=== PATIENT | female | born 1945 | race Caucasian/White ===

== ENCOUNTER 2018-10-14 11:22 | Emergency (ER) | payer BC, OTHER ==
[2018-10-14 11:45] VITALS: BMI 20.2
[2018-10-14] MEDS ORDERED: METOCLOPRAMIDE HCL INJECTION 10 MG/2 ML VIAL IVPUSH ONE (11:45)
--- NOTE | 2018-10-14 11:48 | PDOC ---
History of Present Illness - General Chief Complaint: Psychiatric Stated Complaint: PANIC ATTACK Time Seen by Provider: 10/14/18 11:40 History Source: Patient Exam Limitations: No Limitations - History of Present Illness Initial Comments: 10/14/18 11:48 73y F hx of anxiety presents with complaint of sob. Pt woke up this morning and found that her had . Pt was efeling very anxious, had taken 5mg of valium about 2 hrs prior to arrival and endorses feeling nauseus and vomited a smallb it. she denies any headache, back pain, abd pain, chest pain, cough, fever/chills, leg swelling, uriary symtoms or diarrhea. no melena or bpr. denies any sI/HI. pt accompanied by family Past History - Past Medical History Allergies/Adverse Reactions: Allergies Allergy/AdvReac Type Severity Reaction Status Date / Time No Known Allergies Allergy Verified 10/14/18 11:40 COPD: No - Suicide/Smoking/Psychosocial Hx Smoking History: Never smoked Have you smoked in the past 12 months: No Information on smoking cessation initiated: No Hx Alcohol Use: No Drug/Substance Use Hx: No Review of Systems - Review of Systems Able to Perform ROS?: Yes Comments:: 10/14/18 11:52 Constitutional - no reported Fever, Chills, HEENT: no reported vision changes, sore throat Respiratory: no reported cough, sob, hemoptysis Cardiac: no reported chest pain, palpitations, light headedness, leg swelling Abd/GI: no reported abd pain, nausea, vomiting, blood per rectum, melena, diarrhea : no reported dysuria, frequency, discharge Musculskelatal - no reported back pain, joint swelling skin - no reported bruising, erythema, rash neurological: no reported headache, numbness, focal weakness, tingling, ataxia, hematologic: no reported easy bruising, easy bleeding psych: denies SI/HI *Physical Exam - Vital Signs Last Vital Signs Temp Pulse Resp BP Pulse Ox 97.6 F 88 16 140/77 100 10/14/18 11:25 10/14/18 11:25 10/14/18 11:25 10/14/18 11:25 10/14/18 11:25 - Physical Exam Comments: 10/14/18 11:55 GENERAL: The patient is awake, alert, and fully oriented, Nontoxic - in no acute distress. HEAD: Normocephalic, atraumatic. EYES: extraocular movements intact, ENT: Normal voice, Moist mucous membranes. NECK: Normal range of motion, supple LUNGS: Breath sounds equal, clear to auscultation bilaterally. No wheezes, no rhonchi, no rales. HEART: Regular rate and rhythm, normal S1 and S2 without murmur, rub or gallop. ABDOMEN: Soft, nontender, No guarding, no rebound. . No CVA tenderness EXTREMITIES: Normal range of motion, no edema NEUROLOGICAL: No facial assymetry, Normal speech, PSYCH: anxious, hyperventilating SKIN: Warm, Dry, normal turgor, Moderate Sedation - Procedure Monitoring Vital Signs: Procedure Monitoring Vital Signs Temperature 97.6 F 10/14/18 11:25 Pulse Rate 88 10/14/18 11:25 Respiratory Rate 16 10/14/18 11:25 Blood Pressure 140/77 10/14/18 11:25 O2 Sat by Pulse Oximetry (%) 100 10/14/18 11:25 Heart Score/ECG Review - ECG Impressions Comment:: 10/14/18 12:21 Twelve-lead EKG was performed and reviewed by me. There is normal sinus rhythm with a normal rate. rate of 72 The axis is normal. The intervals are normal. There is normal R wave progression There are no ST or T wave abnormalities. Impression: Normal twelve-lead EKG Medical Decision Making - Medical Decision Making 10/14/18 11:58 suspect acute grief reaction will give reglan for nausea ekg to screen fora cut process anxiolytics as prescribed 10/14/18 13:00 pt feeling improved having a mild headache. whill give tylenol will dc with pmd fu and support of her family I discussed the physical exam findings, ancillary test results and final diagnoses with the patient. I answered all of the patient's questions. The patient was satisfied with the care received and felt comfortable with the discharge plan and treatment plan. The patient will call their primary care physician within 24 hours to arrange follow-up and will return to the Emergency Department with any new, persistent or worsening symptoms. *DC/Admit/Observation/Transfer Diagnosis at time of Disposition: Grief reaction - Discharge Dispostion Disposition: HOME Condition at time of disposition: Improved Decision to Admit order: No - Referrals - Patient Instructions Additional Instructions: Please utilize your family and friends in this time of grief. Take the zofran if you are nauseaus. Make sure you are eating/drinking. Return to the Emergency Department if you have any concerns. Print Language: TURKISH - Post Discharge Activity
[2018-10-14] MEDS ORDERED: METOCLOPRAMIDE HCL INJECTION 10 MG/2 ML VIAL ONE (11:56)
[2018-10-14] MEDS ORDERED: ACETAMINOPHEN 325 MG TABLET (FP) PO ONE (12:55)
[2018-10-14] MEDS ORDERED: ACETAMINOPHEN 325 MG TABLET (FP) ONE (12:56)
[2018-10-14] MEDS ORDERED: ONDANSETRON 4 MG/2 ML VIAL IVPB ONE (13:31)
[2018-10-14] MEDS ORDERED: ONDANSETRON 4 MG/2 ML VIAL ONE (13:40)
[2018-10-14 14:35] VITALS: BP 132/85; PULSE 72; TEMP 98.4
--- NOTE | 2018-10-15 12:52 | EKG ---
Test Reason : Blood Pressure : / mmHG Vent. Rate : 072 BPM Atrial Rate : 072 BPM P-R Int : 156 ms QRS Dur : 098 ms QT Int : 392 ms P-R-T Axes : 068 067 051 degrees QTc Int : 429 ms NORMAL SINUS RHYTHM NORMAL ECG NO PREVIOUS ECGS AVAILABLE Confirmed by STEVEN ZIMMERMAN, EDUARDO ([id number]) on 10/15/2018 12:52:21 PM Referred By: Confirmed By:EDUARDO HARRIS MD
== END 2018-10-14 14:35 | disposition home or self-care (01) ==
LOC: JER 11:22
PROC: 3E033GC Introduction of Other Therapeutic Substance into Peripheral Vein, Percutaneous Approach (ICD-10-PCS; principal; 2018-10-14)
PROC: 3E033GC Introduction of Other Therapeutic Substance into Peripheral Vein, Percutaneous Approach (ICD-10-PCS; 2018-10-14)
DX: F43.20 Adjustment disorder, unspecified (principal); Z63.4 Disappearance and death of family member
CPT/HCPCS: 93005; 93010; 99282-25